=== PATIENT | female | born 1970 | race Two or more races ===

== ENCOUNTER 2021-12-30 22:15 | Inpatient (IN) | payer SELFPAY ==
[~2021-12-30] VITALS: Ht 165.1 cm; Wt 86.6 kg
[2021-12-30 22:17] VITALS: BP 128/64
--- NOTE | 2021-12-30 22:22 | NUR ---
PT WC ASSISTED BED 11
--- NOTE | 2021-12-30 22:34 | NUR ---
EMT AT BEDSIDE CLEANING WOUND
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
--- NOTE | 2021-12-30 22:41 | NUR ---
Dr. Lambert examining patient.
[2021-12-30] MEDS ORDERED: MORPHINE SULFATE 4 MG/ML SYR IVP ONE (22:50)
[2021-12-30] MEDS ORDERED: ONDANSETRON 4 MG/2 ML VIAL IVP ONE (22:50)
--- NOTE | 2021-12-30 23:10 | NUR ---
PT TAKEN TO CT VIA ANNABELLE
--- NOTE | 2021-12-30 23:29 | NUR ---
PT RETURN FROM CT
[2021-12-30 23:58] LABS: BASOPHILS # (AUTO) 0.3 K/uL (0.00-0.22); BASOPHILS % (AUTO) 2.4 % (0.0-2.0); EOSINOPHILS # (AUTO) 0.2 K/uL (0-0.4); EOSINOPHILS % (AUTO) 1.5 % (0.0-4.0); HEMATOCRIT 39.2 % (36-48); HEMOGLOBIN 13.1 g/dL (12.0-16.0); LYMPHOCYTES # (AUTO) 0.9 K/uL (2.5-16.5); LYMPHOCYTES % (AUTO) 7.8 % (20.5-51.1); MEAN CORPUSCULAR HEMOGLOBIN 30 pg (27-31); MEAN CORPUSCULAR HGB CONC 33 g/dL (33-37); MEAN CORPUSCULAR VOLUME 89.2 fL (80-94); MONOCYTES # (AUTO) 0.6 K/uL (0.8-1.0); MONOCYTES % (AUTO) 5.3 % (1.7-9.3); NEUTROPHILS # (AUTO) 9.1 K/uL (1.8-7.7); PLATELET COUNT (AUTO) 257 K/uL (140-450); RED BLOOD CELL COUNT(AUTO) 4.39 MIL/uL (4.20-5.40); RED CELL DISTRIBUTION WIDTH 14.4 % (11.6-13.7)
[2021-12-31] MEDS ORDERED: HYDR-5080 PO (00:07)
[2021-12-31 00:16] LABS: ALBUMIN 3.5 g/dL (3.4-5.0); ANION GAP 11.1 (8-16); CREATININE 0.6 mg/dL (0.6-1.3); POTASSIUM 3.1 mmol/L (3.5-5.1); TOTAL BILIRUBIN 1.3 mg/dL (0.0-1.0)
--- NOTE | 2021-12-31 01:12 | NUR ---
CCOVID/ROWDY SWAB COLLECTED AND WALKED TO LAB
[2021-12-31] MEDS ORDERED: MORPHINE SULFATE 4 MG/ML SYR IVP ONE (01:15)
[2021-12-31] MEDS ORDERED: ONDANSETRON 4 MG/2 ML VIAL IVP ONE (01:15)
[2021-12-31] MEDS ORDERED: MORPHINE SULFATE 2 MG/ML SYR IVP PRN (01:20)
[2021-12-31] MEDS ORDERED: MORPHINE SULFATE 4 MG/ML SYR IVP PRN (01:20)
--- NOTE | 2021-12-31 01:51 | NUR ---
Female Pop Singer accompanied female patient for gown changed and wound.
--- NOTE | 2021-12-31 01:51 | NUR ---
PT CHANGED INTO GOWN, REPLACED LINENS, PLACED BACK ONTO MONITOR
--- NOTE | 2021-12-31 02:24 | NUR ---
Patient noted to have existing wounds upon arrival to ER. Photos taken of wound and placed in chart. Wound covered with dressing. Physician informed.
[2021-12-31 02:42] VITALS: BP 124/77
--- NOTE | 2021-12-31 02:42 | NUR ---
PT TRANSPORTED VIA GURNEY FROM ER. PT IS ON 2L NC. PT IS AAX2 VERY LETHARGIC AFTER RECEIVING MORPHINE FROM ER. PT IS NOT ABLE TO ANSWER QUESTIONS WELL AT THIS TIME. PT HAS LACERATION ON OCCIPITAL PART OF HEAD. PT HAS CLEAR LUNG SOUNDS. ABD SOFT AND NONTENDER. PT HAS LEFT AC 20 GAUGE SALINE LOCK. CALL LIGHT WITHIN REACH. ALL SAFETY MEASURES TAKEN. WILL CONTINUE TO MONITOR THE PT.
--- NOTE | 2021-12-31 02:49 | NUR ---
Patient will be admitted to care of DR JONES. Admited to Med/Surg. Will go to room 106B. Belongings list completed. Report to LEROY BANG.
[2021-12-31 04:00] VITALS: BP 123/74
--- NOTE | 2021-12-31 04:05 | NUR ---
PT IS SLEEPING IN BED COMFORTABLY. PT IS ON RA SATING 100%. PT IS NOT IN ANY DISTRESS. CALL LIGHT WITHIN REACH. ALL SAFETY MEASURES TAKEN. WILL CONTINUE TO MONITOR THE PT.
[2021-12-31 06:40] LABS: BASOPHILS # (AUTO) 0.1 K/uL (0.00-0.22); BASOPHILS % (AUTO) 0.6 % (0.0-2.0); EOSINOPHILS # (AUTO) 0.1 K/uL (0-0.4); EOSINOPHILS % (AUTO) 1.3 % (0.0-4.0); HEMATOCRIT 37.7 % (36-48); HEMOGLOBIN 12.6 g/dL (12.0-16.0); LYMPHOCYTES # (AUTO) 2.7 K/uL (2.5-16.5); LYMPHOCYTES % (AUTO) 29.1 % (20.5-51.1); MEAN CORPUSCULAR HEMOGLOBIN 30 pg (27-31); MEAN CORPUSCULAR HGB CONC 34 g/dL (33-37); MEAN CORPUSCULAR VOLUME 89.2 fL (80-94); MONOCYTES # (AUTO) 0.5 K/uL (0.8-1.0); MONOCYTES % (AUTO) 5.7 % (1.7-9.3); NEUTROPHILS # (AUTO) 5.8 K/uL (1.8-7.7); NEUTROPHILS % (AUTO) 63.3 % (42.2-75.2); PLATELET COUNT (AUTO) 239 K/uL (140-450); RED BLOOD CELL COUNT(AUTO) 4.23 MIL/uL (4.20-5.40); RED CELL DISTRIBUTION WIDTH 14.4 % (11.6-13.7); WHITE BLOOD COUNT (AUTO) 9.2 K/uL (4.8-10.8)
[2021-12-31 06:48] LABS: ANION GAP 11.2 (8-16); CREATININE 0.6 mg/dL (0.6-1.3); POTASSIUM 3.2 mmol/L (3.5-5.1)
--- NOTE | 2021-12-31 07:28 | NUR ---
ENDORSED PT TO DAY SHIFT RN FOR CONTINUITY OF CARE. PT IS STABLE.
--- NOTE | 2021-12-31 07:51 | NUR ---
PATIENT HAS BEEN SCREENED AND CATEGORIZED HIGH NUTRITION RISK. PATIENT WILL BE SEEN WITHIN 1-2 DAYS OF ADMISSION. 12/31/21-01/01/[address]
[2021-12-31 08:00] VITALS: BP 116/67
--- NOTE | 2021-12-31 09:00 | NUR ---
AROUND 0900, PATIENT DISAPPEAR FROM HER ROOM AND LEFT THE FACILITY W/ 18G PERIPHERAL IV ACCESS AT L. ANTECUBITAL.
--- NOTE | 2021-12-31 10:40 | NUR ---
CALLED SHAI TEAGUE TO REPORT THAT PATIENT ELOPED WITH IV STILL ON HER LEFT AC.
== END 2021-12-31 09:00 | disposition left against medical advice (07) | DRG 914 ==
LOC: MED 22:15 → MTU 12-31 01:24
DX: S09.90XA Unspecified injury of head, initial encounter (principal); W17.89XA Other fall from one level to another, initial encounter; E66.9 Obesity, unspecified; S01.81XA Laceration without foreign body of other part of head, initial encounter; Z20.822 Contact with and (suspected) exposure to COVID-19; Y93.89 Activity, other specified; Y92.89 Other specified places as the place of occurrence of the external cause; Y99.8 Other external cause status; Z79.899 Other long term (current) drug therapy; Z68.31 Body mass index [BMI] 31.0-31.9, adult
CPT/HCPCS: 36415; 70450; 72125; 80048; 80053; 85025; 87081; 96374; 96375; 96376; 99285; J2270; J2405